=== PATIENT | female | born 1965 | race Asian ===

== ENCOUNTER → 2018-10-06 | Outpatient (CLI) | payer OTHER | END | disposition home or self-care (01) | LOC: CFH 09:05 | PROVIDERS: ATTEND Genetic Counselor, MS | DX: Z12.31 Encounter for screening mammogram for malignant neoplasm of breast (principal) | CPT/HCPCS: 77063; 77067 ==

== ENCOUNTER → 2020-02-22 | Outpatient (CLI) | payer OTHER | END | disposition home or self-care (01) | LOC: CFH 09:21 | PROVIDERS: ATTEND Genetic Counselor, MS | DX: Z12.31 Encounter for screening mammogram for malignant neoplasm of breast (principal) | CPT/HCPCS: 77063; 77067 ==